=== PATIENT | male | born 1970 | race Caucasian/White ===

== ENCOUNTER 2016-11-21 03:28 | Emergency (ER) | payer OTHER ==
[~2016-11-21] VITALS: Ht 170.2 cm; Wt 54.0 kg
[~2016-11-21 03:28] MED LIST: AFLURIA IM; ALBUTEROL SULF8.5 GM IH; ALPRAZOLAM ER1 MG PO; ANTIDEPRESSANT; ATARAX,VISTARIL25 MG PO; ATARAX,VISTARIL50 MG PO; AUGMENTIN875 MG PO; AZITHROMYCIN250 MG1 PO; BACTRIM,SEPT1 TABLET PO; BACTROBAN OINTM22 GM TP; BENADRYL25 MG PO; BENADRYL50 MG PO; CLINDAMYCIN HC300 MG PO; COMPLERA TABLE1 EACH PO; Cortaid,Hytone 1% Cr TP; DEPAKOTE ER250 MG PO; DEPAKOTE250 MG PO; DEPAKOTE500 MG PO; DILANTIN100 MG PO; Dilantin PO; ELIMITE 5% CREA60 GM TP; EPIPEN ADU0.3 MG/0.3 IM; ERYTHROMYCIN O3.5 GM LEFT EYE; FLEXERIL10 MG PO; FLOVENT 22120 INHALA IH; FOLIC ACID1 MG PO; Folvite PO; HYDROCODON-ACE1 EAC7 PO; Habitrol,Nicoderm CQ TD; IMITREX25 MG PO; KALETRA 200-501 EACH PO; KALETRA 200/501 TAB PO; KEFLEX500 MG PO; LORCET 5-325 M1 EACH PO; MEDROL DOSEPAK4 MG PO; MEGACE 40 MG40 MG/ML PO; MIRTAZAPINE15 MG PO; MOTRIN800 MG PO; NAPROSYN500 MG PO; NORCO 5/3251 TABLET PO; PAXIL2 MG/ML PO; PREDNISONE10 MG PO; PREDNISONE20 MG PO; PROMETHAZINE HC25 M1 PO; REMERON15 M2 PO; RISPERDAL1 MG PO; RISPERIDONE0.25 MG PO; TAMIFLU75 MG PO; TESSALON PERLE100 MG PO; TESSALON200 MG PO; TRAMADOL HCL50 MG PO; TRUVADA1 TABLET PO; TYLENOL WITH C1 EACH PO; Truvada PO; ULTRAM50 MG PO; VENTOLIN HFA18 GM IH; VICODIN,LORT1 TABLET PO; XANAX XR0.5 MG PO; XANAX0.25 MG PO; XANAX1 MG PO; ZITHROMAX TRI-500 MG PO; ZOFRAN ODT4 MG PO
[2016-11-21 05:33] LABS: CHLORIDE 108 mEq/L (99-109)
[2016-11-21 05:33] LABS: EOSINOPHIL (%) 2.4 % (0-5); EOSINOPHIL COUNT 0.1 K/uL (0-0.3); HEMATOCRIT 39.4 % (38.0-50.0); IMMATURE GRANULOCYTE (%) 0.2 % (0.0-0.7); INSTRUMENT ABS NEUTROPHIL CT 2.2 K/uL; LYMPHOCYTE COUNT 1.6 K/uL (1.0-2.8); MCH 33.2 PG (29.0-34.0); MCHC 33.5 G/DL (30.0-36.0); MCV 99.2 FL (86-99); MEAN PLAT.VOLUME 10.9 uM^3 (9.0-12.4); MONOCYTE (%) 13.1 % (3-12); MONOCYTE COUNT 0.6 K/uL (0-0.8); NEUTROPHIL (%) 47.8 % (45-76); NEUTROPHIL COUNT 2.2 K/uL (1.8-6.4); PLATELET COUNT 122 K/uL (156-360); RBC DIS.WIDTH-CV 13.1 % (11.8-14.6); RBC DIS.WIDTH-SD 48.3 % (39-53); RED BLOOD COUNT 3.97 M/uL (4.00-5.50); WHITE BLOOD COUNT 4.6 K/uL (4.1-10.2)
[2016-11-21 05:34] LABS: POTASSIUM 3.4 mEq/L (3.7-5.4); SODIUM 140 mEq/L (136-147)
[2016-11-21 05:35] LABS: GLUCOSE 98 mg/dL (70-99)
[2016-11-21 05:37] LABS: ANION GAP 10 MEQ/L (2-14)
[2016-11-21 05:38] LABS: SERUM ETHYL ALCOHOL 144 mg/dL
[2016-11-21 05:39] LABS: GFR ESTIMATE (CALCULATED) > 59 mL/min/
[2016-11-21 05:40] LABS: UREA NITROGEN (BUN) 18 mg/dL (9-23)
[2016-11-21 08:37] VITALS: BP 119/62
== END 2016-11-21 08:37 | disposition home or self-care (01) ==
LOC: EME 03:28
PROVIDERS: Emergency Medicine
DX: F10.14 Alcohol abuse with alcohol-induced mood disorder (principal); Y90.6 Blood alcohol level of 120-199 mg/100 ml; F32.9 Major depressive disorder, single episode, unspecified; F43.10 Post-traumatic stress disorder, unspecified; F90.9 Attention-deficit hyperactivity disorder, unspecified type; F41.9 Anxiety disorder, unspecified; B20 Human immunodeficiency virus [HIV] disease; J45.909 Unspecified asthma, uncomplicated; B19.20 Unspecified viral hepatitis C without hepatic coma; Z86.73 Personal history of transient ischemic attack (TIA), and cerebral infarction without residual deficits; F17.200 Nicotine dependence, unspecified, uncomplicated; F19.10 Other psychoactive substance abuse, uncomplicated
CPT/HCPCS: 80048; 85025; 90837; 99281; 99282; G0480